=== PATIENT | female | born 1985 | race Caucasian/White ===

== ENCOUNTER 2023-12-13 13:45 | Emergency (ER) | payer BC, MEDICAID, OTHER ==
[~2023-12-13] VITALS: Ht 152.4 cm; Wt 63.5 kg
[2023-12-13 13:54] VITALS: TEMP 98.6; O2SAT 100
[2023-12-13 15:45] VITALS: BP 119/78; PULSE 87; RESP 17; O2SAT 100
== END 2023-12-13 15:50 | disposition home or self-care (01) ==
LOC: ER 14:00
DX: M79.645 Pain in left finger(s) (principal)
CPT/HCPCS: 73140; 99283